=== PATIENT | female | born 1995 | race Two or more races ===

== ENCOUNTER 2025-04-11 02:05 | Emergency (ER) | payer MEDICAID, SELFPAY ==
[2025-04-11 02:08] VITALS: BP 120/80; PULSE 82; RESP 16; TEMP 36.9; O2SAT 99
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
[2025-04-11 04:52] VITALS: BP 118/75; PULSE 88; RESP 16; O2SAT 99
== END 2025-04-11 04:54 | disposition home or self-care (01) ==
PROVIDERS: Emergency Provider Emergency Medicine
DX: Z02.89 Encounter for other administrative examinations (principal); R07.9 Chest pain, unspecified; K13.79 Other lesions of oral mucosa
CPT/HCPCS: 71046; 99283